=== PATIENT | female | born 1990 | race African-American/Black ===

== ENCOUNTER 2016-10-13 07:38 | Emergency (ER) | payer OTHER ==
[~2016-10-13] VITALS: Ht 149.9 cm; Wt 62.6 kg
[2016-10-13 09:13] VITALS: BP 114/59; TEMP 98.4
== END 2016-10-13 09:49 | disposition home or self-care (01) ==
LOC: ED 07:38
DX: R11.10 Vomiting, unspecified (principal); R19.7 Diarrhea, unspecified
CPT/HCPCS: 99282